=== PATIENT | male | born 1960 | race Caucasian/White ===

== ENCOUNTER 2019-11-25 12:01 | Outpatient (CLI) | payer OTHER, SELFPAY ==
--- NOTE | 2019-11-25 12:12 | USCV_ITS ---
Wayne Johnson Age: 58 Gender: M : 1960 Exam Date: 11/25/2019 12:14 Ordering Phys: Rajesh Vidal MD Technologist: Juan Da Silva Exam Location: [facility] – [place] Indication: RT LEG PAIN AND SWELLING HISTORY: Lower extremity pain. PROCEDURES: Venous duplex imaging was performed in only the right lower extremity. The following venous structures were evaluated: common femoral vein, profunda vein, proximal portion of the greater saphenous vein, superficial femoral vein, and the popliteal vein. In addition, the posterior tibial and peroneal trunk were evaluated. On the right side, the common femoral, superficial femoral, profunda femoral, popliteal, posterior tibial, greater saphenous veins and the peroneal trunk were identified and interrogated in the standard fashion. These veins were found to be easily compressible with spontaneous blood flow. No evidence of insufficiency or thrombus noted. FINDINGS: Normal 2-D Doppler and augmentation and compressibility throughout the lower extremity venous structures. Additional imaging through the proximal calf veins also reveals no thrombus. Limited evaluation of the greater saphenous vein is patent with no thrombus.. CONCLUSIONS No evidence of DVT in the above-mentioned identifiable veins. Dr Alhaji Swain MD [facility] (Electronically Signed) Final Date: 25 Nov 2019 16:56 S
== END 2019-11-25 12:02 | disposition home or self-care (01) ==
LOC: RAD 12:10
PROVIDERS: PCP Family Medicine; Visit Provider Family Medicine
DX: Z51.81 Encounter for therapeutic drug level monitoring (principal); E78.5 Hyperlipidemia, unspecified; I10 Essential (primary) hypertension; E11.65 Type 2 diabetes mellitus with hyperglycemia; M79.89 Other specified soft tissue disorders; M79.604 Pain in right leg
CPT/HCPCS: 93971

== ENCOUNTER 2019-12-16 13:13 | Outpatient (CLI) | payer OTHER, SELFPAY ==
--- NOTE | 2019-12-16 13:18 | CT_ITS ---
WS: [id number] CT ABDOMEN PELVIS TECHNIQUE: Contrast-enhanced CT of the abdomen and pelvis with coronal and sagittal reformatted image s. CLINICAL INFORMATION: ABDOMINAL PAIN, EDEMA COMPARISON: . DLP: 1228.[address] scans at [facility] use at least one of these dose optimization techniques: automat ed exposure control; mA and/or kV adjustment per patient size (includes targeted exams where dose is matched to clinical indication); or iterative reconstruction. FINDINGS: Mild diffuse fatty infiltration of the liver. Normal gallbladder. Normal portal vein and splenic vein . Normal spleen. Normal GE junction. A few pulmonary opacities partially visualized in the right mid dle lobe and lingula, the largest measuring 7 mm. Recommend Further evaluation with chest CT. Pancreas appears normal. Normal caliber abdominal aorta. Normal IVC. Adrenal glands are normal. Za l renal parenchymal enhancement. No hydronephrosis. Several adjacent Fat-containing supraumbilical and eccentric supraumbilical fat-containing hernias. N o herniated bowel. Largest is midline supraumbilical hernia with wide mouth opening measuring 2.5 cm. Normal sigmoid colon. No free fluid in the abdomen or pelvis. Enlarged calcified prostate measuring 4 .1 x 4.6 x 4.8 cm. Fat-containing left inguinal hernia. No inguinal lymphadenopathy. CT/CT abdomen pelvis w con* [id number] IMPRESSION: 1. Mild diffuse fatty infiltration of the liver. 2. A few small pulmonary opacities in the lower lobes the largest in the right middle lobe measuring 7 mm. Recommend further evaluation with chest CT. 3. Several small Fat-containing supraumbilical and adjacent eccentric supraumb ilical fat-containing hernias. No herniated bowel. Largest hernia is midline wi th wide mouth opening measuring 2.5 cm. 4. Incidental fat-containing left inguinal hernia. 5. Enlarged calcified prostate. Correlation PSA.
[2019-12-16] MEDS: iohexol 300 mg/mL 100 mL Btl IV (13:30)
== END 2019-12-16 13:14 | disposition home or self-care (01) ==
LOC: RADWPI 13:17
PROVIDERS: PCP Family Medicine; Visit Provider Family Medicine
DX: R10.9 Unspecified abdominal pain (principal); R60.9 Edema, unspecified; K76.0 Fatty (change of) liver, not elsewhere classified; K43.9 Ventral hernia without obstruction or gangrene; K40.90 Unilateral inguinal hernia, without obstruction or gangrene, not specified as recurrent; N40.0 Benign prostatic hyperplasia without lower urinary tract symptoms
CPT/HCPCS: 74177; Q9967

== ENCOUNTER 2020-01-23 12:33 | Outpatient (CLI) | payer OTHER, SELFPAY ==
--- NOTE | 2020-01-23 | MR_ITS ---
WS: [id number] MRI RIGHT femur with and without contrast. HISTORY: Edema. Leg pain. Pain in RIGHT leg from hip to knee. MRI performed with and without contrast. There are are no signal abnormalities or enhancing masses within the femur. Cortex is well preserved. No medullary cavity lesion or abnormal enhancement. Neither joint as well visualized on this study a s the joints are at the edge of the coil is a long bone imaged. No muscle atrophy or edema. No soft t issue mass. There is some increased fluid in the suprapatellar bursa and around the knee. There is some enhanceme nt of the synovium and bursa. Although incompletely included suspect there is probably a small Bangura' s cyst. MR/MR femur RT wo/w con [id number] IMPRESSION: 1. No RIGHT femur abnormality identified. No enhancing mass. 2. Small suprapatellar effusion and possible Bangura's cyst. The entire knee has not been included due to long bone imaging. If pain is specific to the knee con conference manager dedicated RIGHT knee MRI. There is some very mild enhancement of the join t effusion at the knee which may be due to synovitis or infection.
== END 2020-01-23 12:34 | disposition home or self-care (01) ==
LOC: RADSHAW 12:38
PROVIDERS: PCP Family Medicine; Visit Provider Family Medicine
DX: R60.9 Edema, unspecified (principal); M79.604 Pain in right leg; M25.461 Effusion, right knee
CPT/HCPCS: 73720; A9579

== ENCOUNTER 2021-08-30 15:15 | Outpatient (CLI) | payer OTHER, SELFPAY ==
--- NOTE | 2021-08-30 15:24 | XR_ITS ---
WS: [id number] Exam: XR ribs RT 2V* [id number] Date/Time of Exam: 08/30/2021 3:24 PM Reason For Exam: pain after injury No rib fracture or pneumothorax noted. The right lung is fully expanded and clear. No pleural or pulm onary reactive changes. XR/XR ribs RT 2V* [id number] IMPRESSION: 1. Negative right rib study. No pneumothorax.
--- NOTE | 2021-08-30 15:24 | XR_ITS ---
WS: [id number] Exam: XR hip RT 2-3V wo/w pel* [id number] Date/Time of Exam: 08/30/2021 3:24 PM Reason For Exam: pain after fall Findings: No fractures or bone anomalies are noted. No unusual soft tissue masses or calcifications are seen. The bony elements of the hip are in adequate alignment. XR/XR hip RT 2-3V wo/w pel* [id number] IMPRESSION: Negative right hip. Tonnis classification: 0
== END 2021-08-30 15:16 | disposition home or self-care (01) ==
LOC: RAD 15:19
PROVIDERS: PCP Family Medicine; Visit Provider Nurse Practitioner
DX: M25.551 Pain in right hip (principal); R07.81 Pleurodynia; W19.XXXA Unspecified fall, initial encounter
CPT/HCPCS: 71100; 73502

== ENCOUNTER → 2021-12-18 08:38 | Outpatient (BNVA) | payer OTHER, SELFPAY | PROVIDERS: PCP Family Medicine | DX: Z00.00 Encounter for general adult medical examination without abnormal findings (principal) | CPT/HCPCS: 80053; 80061; 83036; 83721; 85025 ==

== ENCOUNTER → 2022-01-30 09:02 | Outpatient (BNVA) | payer OTHER, SELFPAY | PROVIDERS: PCP Family Medicine; Visit Provider Family Medicine | DX: I10 Essential (primary) hypertension (principal); E11.9 Type 2 diabetes mellitus without complications | CPT/HCPCS: 80053; 80061; 83036; 83721 ==

== ENCOUNTER → 2022-04-24 08:14 | Outpatient (BNVA) | payer OTHER, SELFPAY | PROVIDERS: PCP Family Medicine; Visit Provider Family Medicine | DX: E78.5 Hyperlipidemia, unspecified (principal); I10 Essential (primary) hypertension; E11.9 Type 2 diabetes mellitus without complications | CPT/HCPCS: 80053; 80061; 83036 ==

== ENCOUNTER → 2022-07-29 07:30 | Outpatient (BNVA) | payer OTHER, SELFPAY | PROVIDERS: PCP Family Medicine; Visit Provider Family Medicine | DX: E78.5 Hyperlipidemia, unspecified (principal); I10 Essential (primary) hypertension; E11.9 Type 2 diabetes mellitus without complications | CPT/HCPCS: 80053; 80061; 83036; 83721 ==

== ENCOUNTER → 2022-11-24 08:10 | Outpatient (BNVA) | payer OTHER, SELFPAY | PROVIDERS: PCP Family Medicine; Visit Provider Family Medicine | DX: E78.5 Hyperlipidemia, unspecified (principal); E11.9 Type 2 diabetes mellitus without complications; I10 Essential (primary) hypertension | CPT/HCPCS: 80053; 80061; 83036; 83721 ==

== ENCOUNTER → 2023-01-27 08:06 | Outpatient (BNVA) | payer OTHER, SELFPAY | PROVIDERS: PCP Family Medicine; Visit Provider Family Medicine | DX: E78.5 Hyperlipidemia, unspecified (principal); I10 Essential (primary) hypertension; E11.9 Type 2 diabetes mellitus without complications | CPT/HCPCS: 80053; 80061; 83036; 83721 ==

== ENCOUNTER → 2023-05-05 08:13 | Outpatient (BNVA) | payer OTHER, SELFPAY | PROVIDERS: PCP Family Medicine; Visit Provider Family Medicine | DX: E78.5 Hyperlipidemia, unspecified (principal); I10 Essential (primary) hypertension; E11.9 Type 2 diabetes mellitus without complications | CPT/HCPCS: 80053; 80061; 83036; 83721 ==

== ENCOUNTER → 2023-08-06 07:58 | Outpatient (BNVA) | payer OTHER, SELFPAY | PROVIDERS: PCP Family Medicine; Visit Provider Family Medicine | DX: I10 Essential (primary) hypertension (principal); E78.5 Hyperlipidemia, unspecified; E11.9 Type 2 diabetes mellitus without complications; K43.2 Incisional hernia without obstruction or gangrene | CPT/HCPCS: 80053; 80061; 83036; 83721 ==

== ENCOUNTER → 2023-11-05 07:22 | Outpatient (BNVA) | payer OTHER, SELFPAY | PROVIDERS: PCP Family Medicine; Visit Provider Family Medicine | DX: I10 Essential (primary) hypertension (principal); E78.5 Hyperlipidemia, unspecified; E11.9 Type 2 diabetes mellitus without complications | CPT/HCPCS: 80053; 80061; 83036; 83721 ==

== ENCOUNTER → 2024-06-16 07:38 | Outpatient (BNVA) | payer OTHER, SELFPAY | PROVIDERS: PCP Family Medicine; Visit Provider Family Medicine | DX: I10 Essential (primary) hypertension (principal); E78.5 Hyperlipidemia, unspecified; E11.9 Type 2 diabetes mellitus without complications | CPT/HCPCS: 80053; 80061; 83036 ==

== ENCOUNTER → 2024-12-15 07:25 | Outpatient (BNVA) | payer OTHER, SELFPAY | PROVIDERS: PCP Family Medicine; Visit Provider Family Medicine | DX: I10 Essential (primary) hypertension (principal); E78.5 Hyperlipidemia, unspecified; E11.9 Type 2 diabetes mellitus without complications | CPT/HCPCS: 80053; 80061; 83036 ==